=== PATIENT | male | born 1955 | race Caucasian/White ===

== ENCOUNTER → 2017-04-08 | Outpatient (CLI) | payer OTHER ==
[~2017-04-08] MED LIST: ADVAIR 250/501 DISK IH; CARDIZEM CD,CA180 MG PO; DAILY VITE1 EAC1 PO; DOXYCYCLINE HY100 M3 PO; MEN'S MULTI-VI1 EACH PO; MONTELUKAST SOD10 MG PO; PREDNISONE5 MG PO; PROAIR HFA8.5 GM IH; PROVENTIL,2.5 MG/0.5 AEROSOL; TUDORZA PRESS400 MCG IH; [UNRECOGNIZED DRUG - SUPPLY] TP
== END | disposition home or self-care (01) ==
LOC: RAD 08:47
DX: Z00.01 Encounter for general adult medical examination with abnormal findings (principal); I71.4 Abdominal aortic aneurysm, without rupture; R19.00 Intra-abdominal and pelvic swelling, mass and lump, unspecified site; I10 Essential (primary) hypertension; Z72.0 Tobacco use
CPT/HCPCS: 76775

== ENCOUNTER → 2017-08-29 | Outpatient (CLI) | payer OTHER | END | disposition home or self-care (01) | LOC: RAD 08-25 16:30 | DX: J21.9 Acute bronchiolitis, unspecified (principal); J43.9 Emphysema, unspecified | CPT/HCPCS: 71250 ==